=== PATIENT | male | born 1975 | race Asian ===

== ENCOUNTER 2017-05-09 10:50 | Emergency (ER) | payer SELFPAY ==
[~2017-05-09] VITALS: Ht 177.8 cm; Wt 72.0 kg
[2017-05-09 11:11] VITALS: BP 136/110
== END 2017-05-09 13:50 | disposition left against medical advice (07) ==
LOC: EME 10:50
DX: H53.8 Other visual disturbances (principal); Z53.21 Procedure and treatment not carried out due to patient leaving prior to being seen by health care provider